=== PATIENT | female | born 1970 | race Caucasian/White ===

== ENCOUNTER → 2017-01-10 | Outpatient (CLI) | payer MEDICARE, SELFPAY | END | disposition home or self-care (01) | LOC: RAD.S 08:30 | DX: M25.511 Pain in right shoulder (principal); M25.811 Other specified joint disorders, right shoulder; M79.89 Other specified soft tissue disorders ==

== ENCOUNTER → 2017-02-06 | Outpatient (CLI) | payer MEDICARE, SELFPAY | END | disposition home or self-care (01) | LOC: RAD.S 08:12 | DX: M89.311 Hypertrophy of bone, right shoulder (principal); R22.2 Localized swelling, mass and lump, trunk ==